=== PATIENT | female | born 1985 | race Caucasian/White ===

== ENCOUNTER 2017-04-06 06:32 | Emergency (ER) | payer OTHER ==
[~2017-04-06] VITALS: Ht 172.7 cm; Wt 97.5 kg
[2017-04-06] MEDS ORDERED: KETOROLAC 15 MG/ML VIAL. IV ONE ×2 (07:30→09:00)
[2017-04-06] MEDS ORDERED: ONDANSETRON PF 4 MG/2 ML VIAL. IV ONE (07:30)
[2017-04-06] MEDS ORDERED: IV NORMAL SALINE 1,000ML 1,000 ML IV ONE (07:30)
--- NOTE | 2017-04-06 07:39 | PHYS DOC ---
Past History Past Medical History: Anxiety, Diabetes, Other Past Surgical History: Other Alcohol Use: None Drug Use: None Social History Narrative: CHEMICAL SUBSTANCE ABUSE Adult General Chief Complaint Chief Complaint: FLANK PAIN HPI HPI Patient is a 31-year-old female presenting to the emergency department for evaluation of left flank pain that has been going on for approximately 5-6 days. Patient has had intermittent nausea vomiting and diarrhea as well and she says this morning she feels a headache. She says that the left flank pain is the most intense pain and he can radiate down into her mid lower abdomen. She denies any dysuria hematuria vaginal bleeding vaginal discharge. She says that she had fevers and chills earlier this week but none currently. She is a diabetic and says that she had a bad experience with infection where she lost her toe. Emesis is nonbloody nonbilious and diarrhea has slowed down since other this week. She is in no obvious distress with normal vital signs except for her tachycardia. Review of Systems Review of Systems Constitutional: Denies fever or chills [] Eyes: Denies change in visual acuity, redness, or eye pain [] HENT: Denies nasal congestion or sore throat [] Respiratory: Denies cough or shortness of breath [] Cardiovascular: No additional information not addressed in HPI [] GI: + abdominal pain, nausea, vomiting, diarrhea [] : Denies dysuria or hematuria [] Musculoskeletal: + back pain Integument: Denies rash or skin lesions [] Neurologic: + headache. No focal weakness or sensory changes [] All other systems were reviewed and found to be within normal limits, except as documented in this note. Current Medications Current Medications Current Medications Medications (Trade) Dose Ordered Sig/Lenore Start Time Stop Time Status Last Admin Dose Admin Ketorolac Tromethamine (Toradol) 15 mg 1X ONCE 04/06/17 07:30 04/06/17 07:31 Ondansetron HCl (Zofran) 8 mg 1X ONCE 04/06/17 07:30 04/06/17 07:31 Sodium Chloride 1,000 ml @ 1,000 mls/hr 1X ONCE 04/06/17 07:30 04/06/17 08:29 Allergies Allergies Allergies Coded Allergies Type Severity Reaction Last Updated Verified shellfish derived Allergy Intermediate 04/06/17 Yes Physical Exam Physical Exam Constitutional: Well developed, well nourished, no acute distress, non-toxic appearance. [] HENT: Normocephalic, atraumatic, bilateral external ears normal, oropharynx moist, no oral exudates, nose normal. [] Eyes: PERRLA, EOMI, conjunctiva normal, no discharge. [] Neck: Normal range of motion, no tenderness, supple, no stridor. [] Cardiovascular:Heart rate tachycardic with regular rhythm, no murmur [] Lungs & Thorax: Bilateral breath sounds clear to auscultation [] Abdomen: Bowel sounds normal, soft, no tenderness, no masses, no pulsatile masses. [] Skin: Warm, dry, no erythema, no rash. [] Back: No tenderness, + L CVA tenderness. [] Extremities: No tenderness, no cyanosis, no clubbing, ROM intact, no edema. [] Neurologic: Alert and oriented X 3, normal motor function, normal sensory function, no focal deficits noted. [] Current Patient Data Vital Signs Vital Signs Date Time Temp Pulse Resp B/P (MAP) Pulse Ox O2 Delivery O2 Flow Rate FiO2 04/06/17 06:45 98.3 122 18 96 Room Air EKG EKG [] Radiology/Procedures Radiology/Procedures CT of the abdomen and pelvis without contrast, 04/06/2017: History: Left flank pain, nausea and vomiting Noncontrast scans were obtained through the urinary tract utilizing the renal stone protocol. There is a single tiny nonobstructing calculus in the lower pole of the left kidney. There is mild left perinephric edema. The left renal collecting system and left ureter are mildly dilated. This appears to be due to a 3 mm calculus in the distal left ureter located several centimeters superior to the level of the ureterovesical junction. A second nearby radiopacity is probably a phlebolith, although an additional stone fragment cannot be excluded. There are other small radiopacities in the pelvis bilaterally compatible with phleboliths. The urinary bladder is collapsed and poorly defined. No right sided urinary tract calculus is identified. The right renal collecting system and ureter are not dilated. There is mild bilateral renal cortical scarring. The unopacified liver is unremarkable. No gallbladder abnormality is seen. The pancreas shows no evidence of a mass. A small calcification is present in the pancreatic tail. The spleen is of normal size. No abdominal or pelvic adenopathy is seen. The uterus is unremarkable. No bowel dilatation is evident. The appendix is visualized and shows no abnormality. No free air or significant free fluid is evident in the abdomen or pelvis. Incidental not is made of bilateral spondylolysis at L5 without significant spondylolisthesis. There is moderate posterior disc bulging at L5-S1 with foraminal narrowing, more so on the right. IMPRESSION: 1. Small obstructing calculus in the distal left ureter. 2. Small nonobstructing left intrarenal calculus. 3. Bilateral spondylolysis at L5. PQRS Compliance Statement: One or more of the following individualized dose reduction techniques were utilized for this examination: 1. Automated exposure control 2. Adjustment of the mA and/or kV according to patient size 3. Use of iterative reconstruction technique DICTATED AND SIGNED BY: ROCK JASSO MD DATE: 04/06/17 0736 Course & Med Decision Making Course & Med Decision Making Patient with left flank pain with wide differential including ureteral colic and pyelonephritis. Given she is tachycardic and a diabetic shoe will get labs urinalysis CT treat symptoms and reassess. Of note she says that she has a substance abuse issue in her past and she would like to avoid any opioid medications. Patient continued to have severe pain so she was willing to take a dose of morphine in addition to Toradol. She was given 2 L of fluid given she has ketonuria and continues to be tachycardic. She was also given Flomax Tylenol magnesium and 2 g Rocephin. Unfortunately she continues to have pain in tachycardic and now she is somewhat hypotensive. She does meet sepsis criteria with the tachycardia and leukocytosis. Given she is diabetic not improving and her vital signs are worsening she will be transferred to [place]. There is no urology coverage at [facility] in case she needs a stone extraction or stent she will need to be at a facility where urology services could be provided. Patient agreeable with plan for transfer. Patient transferred in guarded condition. Dragon Disclaimer Dragon Disclaimer This electronic medical record was generated, in whole or in part, using a voice recognition dictation system. Departure Departure: Impression: Primary Impression: Ureteral stone with hydronephrosis Additional Impressions: Sepsis Hypomagnesemia Ketonuria Disposition: XFER OTHER ([facility]) Condition: GUARDED Problem Qualifiers JAMIE BENNETT DO Apr 06, 2017 07:39
--- NOTE | 2017-04-06 07:46 | RAD ---
CT of the abdomen and pelvis without contrast, 04/06/2017: History: Left flank pain, nausea and vomiting Noncontrast scans were obtained through the urinary tract utilizing the renal stone protocol. There is a single tiny nonobstructing calculus in the lower pole of the left kidney. There is mild left perinephric edema. The left renal collecting system and left ureter are mildly dilated. This appears to be due to a 3 mm calculus in the distal left ureter located several centimeters superior to the level of the ureterovesical junction. A second nearby radiopacity is probably a phlebolith, although an additional stone fragment cannot be excluded. There are other small radiopacities in the pelvis bilaterally compatible with phleboliths. The urinary bladder is collapsed and poorly defined. No right sided urinary tract calculus is identified. The right renal collecting system and ureter are not dilated. There is mild bilateral renal cortical scarring. The unopacified liver is unremarkable. No gallbladder abnormality is seen. The pancreas shows no evidence of a mass. A small calcification is present in the pancreatic tail. The spleen is of normal size. No abdominal or pelvic adenopathy is seen. The uterus is unremarkable. No bowel dilatation is evident. The appendix is visualized and shows no abnormality. No free air or significant free fluid is evident in the abdomen or pelvis. Incidental not is made of bilateral spondylolysis at L5 without significant spondylolisthesis. There is moderate posterior disc bulging at L5-S1 with foraminal narrowing, more so on the right. IMPRESSION: 1. Small obstructing calculus in the distal left ureter. 2. Small nonobstructing left intrarenal calculus. 3. Bilateral spondylolysis at L5. PQRS Compliance Statement: One or more of the following individualized dose reduction techniques were utilized for this examination: 1. Automated exposure control 2. Adjustment of the mA and/or kV according to patient size 3. Use of iterative reconstruction technique
[2017-04-06 07:59] LABS: BASO # 0.1 x10^3/uL (0.0-0.2); BASO % 0 % (0-3); EOS % 0 % (0-3); HEMATOCRIT 39.9 % (36.0-47.0); HEMOGLOBIN 13.5 g/dL (12.0-15.5); LYMPH # 1.1 x10^3/uL (1.0-4.8); LYMPH % 5 % (24-48); MEAN CORPUSCULAR HEMOGLOBIN 31 pg (25-35); MEAN CORPUSCULAR HGB CONC 34 g/dL (31-37); MEAN CORPUSCULAR VOLUME 91 fL (79-100); MONO # 0.7 x10^3/uL (0.0-1.1); MONO % 3 % (0-9); NEUT # 20.4 x10^3uL (1.8-7.7); NEUT % 92 % (31-73); PLATELET COUNT 161 x10^3/uL (140-400); RED BLOOD COUNT 4.38 x10^6/uL (3.50-5.40); RED CELL DISTRIBUTION WIDTH 12.9 % (11.5-14.5); WHITE BLOOD COUNT 22.2 x10^3/uL (4.0-11.0)
[2017-04-06 08:06] LABS: ALBUMIN 3.2 g/dL (3.4-5.0); ALBUMIN/GLOBULIN RATIO 0.8 (1.0-1.7); CALCIUM 8.8 mg/dL (8.5-10.1); CREATININE 1.2 mg/dL (0.6-1.0); GFR 52.7; MAGNESIUM 0.7 mg/dL (1.8-2.4); TOTAL BILIRUBIN 0.9 mg/dL (0.2-1.0)
[2017-04-06 08:40] LABS: BARBITURATES NEG (NEG); BENZODIAZEPINES NEG (NEG); CANNABINOIDS NEG (NEG); COCAINE NEG (NEG); METHADONE NEG (NEG); OPIATES NEG (NEG); PHENCYCLIDINE NEG (NEG)
[2017-04-06 08:41] LABS: AMPHETAMINE/METHAMPHETAMINE NEG (NEG)
[2017-04-06 08:42] LABS: BILIRUBIN,URINE NEG (NEG); CLARITY,URINE CLOUDY; COLOR,URINE YELLOW; GLUCOSE,URINE NEG (NEG); NITRITE,URINE NEG (NEG); UROBILINOGEN,URINE 0.2 mg/dL (0.2 mg/dL)
[2017-04-06 08:43] LABS: BACTERIA,URINE MOD /HPF (0-FEW); SQUAMOUS EPITHELIAL CELL,UR MOD /LPF; WBC,URINE >40 /HPF (0-4)
[2017-04-06] MEDS ORDERED: MAGNESIUM SULFATE 2GM 50 ML IV ONE (08:45)
[2017-04-06] MEDS ORDERED: MAGNESIUM OXIDE 400 MG TABLET PO ONE (08:45)
[2017-04-06] MEDS ORDERED: TAMSULOSIN 0.4 MG CAP.ER.24H. PO ONE (08:45)
[2017-04-06] MEDS ORDERED: IV RINGERS SOLUTION,LACTATED 1,000 ML IV ONE (08:45)
[2017-04-06] MEDS ORDERED: IV NORMAL SALINE 100ML 100 ML ONE (08:51)
[2017-04-06] MEDS ORDERED: MORPHINE SULFATE 4 MG/ML DISP.SYRIN. IV ONE (09:00)
[2017-04-06 09:02] LABS: % BANDS 18 % (0-9); % LYMPHS 8 % (24-48); % MONOS 4 % (0-10); % SEGS 70 % (35-66)
[2017-04-06 09:03] LABS: PLT ESTIMATE ADEQUATE (ADEQUATE)
[2017-04-06 09:15] VITALS: BP 98/48
[2017-04-06] MEDS ORDERED: ACETAMINOPHEN 500 MG TABLET PO ONE (09:30)
== END 2017-04-06 10:40 | disposition short-term general hospital (02) ==
LOC: ER 06:32
DX: N13.2 Hydronephrosis with renal and ureteral calculous obstruction (principal); A41.9 Sepsis, unspecified organism; E83.42 Hypomagnesemia; R82.4 Acetonuria; D72.825 Bandemia; E87.2 Acidosis; F41.9 Anxiety disorder, unspecified; E11.9 Type 2 diabetes mellitus without complications; Z91.013 Allergy to seafood
CPT/HCPCS: 36415; 74176; 80053; 80307; 81001; 81025; 82550; 82947; 83605; 83735; 85007; 85025; 87040; 87086; 96361; 96365; 96366; 96368; 96375; 96376; 99285; G0480; J0696; J1885; J2270; J2405; J3475; J7120; 87186; G0479; J7030